=== PATIENT | male | born 1970 | race Caucasian/White ===

== ENCOUNTER 2016-12-04 21:34 | Observation (INO) ==
[2016-12-04] MEDS ORDERED: ASPIRIN 325 MG TABLET PO STA (22:02)
[2016-12-04] MEDS ORDERED: ASPIRIN 325 MG TABLET ONE (22:19)
[2016-12-04 22:34] LABS: Basophils # 0.1 10*3/uL (0.0-0.2); Eosinophils # 0.4 10*3/uL (0.0-0.87); Eosinophils % 3.3 % (0.00-10.9); Hematocrit 36.5 VOL% (42.0-52.0); Hemoglobin 12.3 GM/DL (14.0-18.0); Immature Granulocytes % 0.4 %; Immature Granulocytes Absolute 0.04 #; Lymphocytes # 2.2 10*3/uL (1.4-4.0); Lymphocytes % 19.8 % (21.2-54.2); Mean Corpuscular HGB Conc 33.7 GM/DL (32-36); Mean Corpuscular Hemoglobin 30 PG (27-34); Mean Corpuscular Volume 89.7 FL (87-102); Mean Platelet Volume 10.4 FL (9.6-12.0); Monocytes # 0.9 10*3/uL (0.11-0.8); Monocytes % 8.5 % (1.7-12.7); Neutrophils # 7.4 10*3/uL (1.4-7.4); Platelet Count 254 T/CUMM (130-400); Red Blood Count 4.07 MC/CUMM (3.8-5.5); Red Cell Distribution Width 13.5 % (9.3-17.3); White Blood Count 11.1 T/CUMM (4-12)
[2016-12-04 23:10] LABS: Alanine Aminotransferase 39 U/L (16-61); Albumin 3.5 G/DL (3.4-5.0); Alkaline Phosphatase 88 U/L (45-117); Aspartate Amino Transferase 21 U/L (0-37); Bilirubin,Total < 0.39 MG/DL (0.2-1.0); Blood Urea Nitrogen 19 MG/DL (7-18); Calcium 8.2 MG/DL (8.5-10.1); Glucose 140 MG/DL (74-106); Magnesium 2.1 MG/DL (1.8-2.4); Osmolality,Calculated 280.5 MOS/KG (273-304); Potassium 4.3 MMOL/L (3.5-5.1); Sodium 139 MMOL/L (136-145); Total Protein 6.8 G/DL (6.4-8.3)
[2016-12-04] MEDS ORDERED: HYDROmorphone 2 MG/1 ML VIAL IV PRN (23:25)
[2016-12-04] MEDS ORDERED: ONDANSETRON 4 MG/2 ML VIAL IV PRN (23:25)
--- NOTE | 2016-12-04 23:32 | Emergency Department Note ---
Raudel Hagen Brooke, am scribing for, and in the presence of, Tyra Andrade MD 22: 11. Lupe Hagen Leanne, MD, personally performed the services described in this documentation, ascribed by Cheli Starks in my presence, and it is both accurate and complete 332 . Arrival - Arrival Chief Complaint: Abdominal / Flank Pain Stated Complaint: possible heart attack ED Nursing Triage Note: C/O Nausea/vomiting/abd pain. Onset approx one hour ago. Pt states that the last time he had a heart attack he had similar symptoms so he wanted to get it checked out. Denies chest pain/shortness of breath. Reports that his blood pressure is elevated because he ran out of his BP meds and forgot to pick them up. Mode of Arrival: Ambulatory Limitations: No Limitations Source: Patient, RN Notes Reviewed Time Seen by Provider: 12/04/16 21:55 - History of Present Illness HPI Narrative: Patient is a 46 year old male who presents to the ED with c/o nausea, diaphoresis, and abdominal pain that started around 2054. Patient says he started feeling nauseated and took Nitro and then started feeling worse. He says he broke out into a cold sweat and started having some epigastric abdominal pain. Patient denies having any chest pain. He says he stopped taking his blood thinners for about "four to five" days because he was supposed to have some dental work done. He also did not take his blood pressure medication, this morning, and states that he ran out of them. Patient also has PMHx of CAD, MS, and depression. He says with the MS's, he had similar symptoms as today. His MS's happened almost two years ago and he did have stents placed. Allergies/Adverse Reactions: Allergies Allergy/AdvReac Type Severity Reaction Status Date / Time lisinopril AdvReac Cough Verified 02/05/15 14:08 Home Medications: Home Medications Medication Instructions Recorded Confirmed Type Aspirin [Ecotrin] 81 mg PO DAILY 03/09/15 12/04/16 History Atorvastatin Calcium [Lipitor] 80 mg PO BEDTIME 03/09/15 12/04/16 History Sertraline [Zoloft] 100 mg PO DAILY 03/09/15 12/04/16 History Ticagrelor [Brilinta] 90 mg PO BID 03/09/15 12/04/16 History Nitroglycerin Sl Tab [Nitrostat] 0.4 mg SL Q5M PRN 12/04/16 12/04/16 History Valsartan 160 mg PO DAILY 12/04/16 12/04/16 History amLODIPine [Norvasc] 10 mg PO DAILY 12/04/16 12/04/16 History buPROPion [Wellbutrin] 100 mg PO BID 12/04/16 12/04/16 History Review of System - Review of System 12 point system: reviewed and no additional remarkable complaints except as stated - Review of System Constitutional: Present: diaphoresis (cold sweat). Absent: fever Respiratory: Absent: respiratory distress Cardiovascular: Absent: chest pain Gastrointestinal: Present: abdominal pain (epigastric), nausea Skin: Absent: rash Medical,Surgical,& Family Hx - Medical History Cardio: History of: CAD, Hypertension, Cardiovascular Problems (CADstatus post MS, status post stent) Psychological: History of: Depression Neurology: No history of: Seizures - Surgical History Cardiac Surgeries: Sugical HX of: Cardiac Catheterization (today) Thoracic Surgeries: Surgical HX of;: Organ Transplant (tonsilectomy, knee scope) - Family History Family History: Reports;: Family Heart Disease (DAD AT 34 YEARS OF AGE FROM MS), Family Hypertension, Family Psychiatric Problems (mother suicide) - Social History Smoking Status: Former smoker Frequency of Alcohol Use: None Type of Drug Use: None Exam Vital Signs: Vital Signs Temperature 98.5 F 12/04/16 21:37 Pulse Rate 82 12/04/16 21:37 Respiratory Rate 18 12/04/16 21:37 Blood Pressure 168/104 12/04/16 21:37 O2 Sat by Pulse Oximetry 100 12/04/16 21:37 - General General appearance: alert, in no apparent distress - Head Head exam: Present: atraumatic, normocephalic - Eye Eye exam: Present: normal appearance, PERRL, EOMI - ENT ENT exam: Present: normal exam - Neck Neck exam: Present: normal inspection - Chest Chest inspection: Present: normal inspection, symmetric chest wall rise - Respiratory Respiratory exam: Present: normal lung sounds bilaterally - Cardiovascular Cardiovascular exam: Present: regular rate, normal rhythm, normal heart sounds - Abdominal Exam Abdominal exam: Present: soft, normal bowel sounds. Absent: distention, tenderness - Extremities Exam Extremities exam: Present: normal inspection - Back Exam Back exam: Present: normal inspection - Neurological Exam Neurological exam: Present: alert, oriented X3 - Psychiatric Psychiatric exam: Present: normal affect, normal mood - Skin Skin exam: Present: warm, dry, intact, normal color Course Course Narrative: pt reports hx of stents and had similar symptoms then. pt reports onset of nausea and then diaphoresis. felt worse after nitro. EKG unremarkable, first set of labs neg. will obs overnight for rule out. spoke with dr darby who said consult cardiology. Results - Labs CBC & BMP: 12/04/16 22:21 12/04/16 22:21 Lab Results: I have reviewed the patients labs Labs: Laboratory Tests 12/04/16 22:21 WBC 11.1 RBC 4.07 Hgb 12.3 L Hct 36.5 L MCV 89.7 MCH 30 MCHC 33.7 RDW 13.5 Plt Count 254 MPV 10.4 Neut % (Auto) 67.0 Lymph % (Auto) 19.8 L Amador % (Auto) 8.5 Eos % (Auto) 3.3 Neut # (Auto) 7.4 Lymph # (Auto) 2.2 Amador # (Auto) 0.9 H Eos # (Auto) 0.4 Baso # (Auto) 0.1 Immature Gran % 0.4 Nucleated RBC % 0.0 Immature Gran # 0.04 Nucleated RBCs # 0.00 Immature Plt Fraction 0.0 - EKG EKG results: interpreted by JOSELYN WNL, sinus rhythm, normal axis, normal QRS, normal ST/T Disposition Clinical Impression: Abdominal pain, Diaphoresis Case discussed with: patient Additional Instructions: admit to dr darby
--- NOTE | 2016-12-05 08:40 | XRay Report ---
Portable chest December 04, 2016 at 2205 hours Indication: Shortness of breath Comparison: Not available Findings: Cardiomediastinal contours are normal. Lungs are clear bilaterally. No acute osseous abnormalities. Visualized upper abdomen demonstrates no acute pathology. Impression: No acute cardiopulmonary findings PROCEDURE INTERPRETED AT [facility] DEPARTMENT OF RADIOLOGY Final Report Signed by: Nikolas Nesbitt
[2016-12-05] MEDS ORDERED: PANTOPRAZOLE 40 MG TABLET PO SCH (09:00)
[2016-12-05] MEDS ORDERED: ACETAMINOPHEN 325 MG TABLET PO PRN (09:46)
--- NOTE | 2016-12-05 09:50 | EKG Report ---
Stationary ECG Study [facility] ER Test Date: 12/04/2016 10:22:26 PM Pat Name: HEATHER TILLMAN Department: Room: 265 Gender: M [employer]visor [employer]: : 1970 Requested by: Tyra Andrade Order Number: [id number] Reading MD: MATEO FAITH Intervals [place] Rate: 81 P: 43 CA: 150 QRS: 83 QRSD: 106 T: 70 QT: 402 QTc: 439 Interpretive Statements SINUS RHYTHM POOR R-WAVE PROGRESSION Electronically Signed On 12-05-16 16:12:43 CDT by MATEO FAITH [email or web address]
[2016-12-05] MEDS ORDERED: NITROGLYCERIN SL 0.4 MG TABLET SL PRN (09:51)
--- NOTE | 2016-12-05 09:59 | Family Practice History&Phys ---
Assessment and Plan (1) Chest pain Status: Acute Assessment and plan: Patient experienced nausea diaphoresis and substernal chest pain laying in bed at home. Pain was relieved with one nitroglycerin. Pain is similar to pain he has had in the past with coronary artery disease. Will consult cardiology for evaluation Current Visit: No (2) ST elevation myocardial infarction (STEMI) Status: Chronic Assessment and plan: Previous myocardial infarction in 2012. Found to have coronary artery disease and stent placement Current Visit: No (3) Status post insertion of drug-eluting stent into left anterior descending ( LAD) artery Status: Chronic Assessment and plan: Patient had stent placement following evaluation for coronary artery disease. He had a myocardial infarction during that admission. Current Visit: No (4) Hypertension Status: Chronic Assessment and plan: Stable at present. Patient apparently has not been compliant with medications Current Visit: No (5) Tobacco abuse Status: Chronic Assessment and plan: Patient states she stopped smoking after his myocardial infarction but restarted 2 months ago. Now states that he stopped 2 weeks ago. Current Visit: No (6) Depression Status: Chronic Assessment and plan: Stable on present medication Current Visit: No History of Present Illness Chief complaint: Chest pain and weakness History of present illness: Mr. Reddy is a 46 year old male 46-year-old male admitted with onset of nausea and diaphoresis while laying in bed. Subsequently developed some dull type chest pain. Symptoms were relieved with nitroglycerin. Patient states the symptoms are similar to symptoms he has had the past with a myocardial infarction. Patient had a myocardial infarction in 2014. He subsequently had cardiac catheterization with stent placement. He is followed by Dr. Somers. Patient states that he has been off of his Brilinta for several days prior to a dental appointment. He apparently canceled a dental appointment and restarted his Brilinta 2 days prior to this admission. Also admits that he has not been taking blood pressure medications as prescribed. Further relates that he quit smoking after his original myocardial infarction but restarted smoking 2 months ago. Now states that he quit 2 weeks ago. Patient has not been a compliant patient. His enzymes and EKGs in the emergency room were unremarkable but in view of history we will admit further evaluation therapy. Will consult cardiology. Home Medications Medication Instructions Recorded Confirmed Type Aspirin [Ecotrin] 81 mg PO DAILY 03/09/15 12/05/16 History Atorvastatin Calcium [Lipitor] 80 mg PO BEDTIME 03/09/15 12/05/16 History Sertraline [Zoloft] 100 mg PO DAILY 03/09/15 12/05/16 History Ticagrelor [Brilinta] 90 mg PO BID 03/09/15 12/05/16 History Nitroglycerin Sl Tab [Nitrostat] 0.4 mg SL Q5M PRN 12/04/16 12/05/16 History Valsartan 160 mg PO DAILY 12/04/16 12/05/16 History amLODIPine [Norvasc] 10 mg PO DAILY 12/04/16 12/05/16 History buPROPion [Wellbutrin] 100 mg PO BID 12/04/16 12/05/16 History Allergies Allergy/AdvReac Type Severity Reaction Status Date / Time lisinopril AdvReac Cough Verified 02/05/15 14:08 Medical,Surgical,& Family Hx - Medical History Cardio: History of: CAD, Hypertension, VA, Cardiovascular Problems (CADstatus post VA, status post stent) Psychological: History of: Anxiety Disorders, Depression Neurology: No history of: Seizures Endocrine: History of: Dyslipidemia - Surgical History Cardiac Surgeries: Sugical HX of: Cardiac Catheterization (today) Thoracic Surgeries: Comment Only: Organ Transplant (tonsilectomy, knee scope) - Family History Family History: Reports;: Family Heart Disease (DAD AT 34 YEARS OF AGE FROM VA), Family Hypertension, Family Psychiatric Problems (mother suicide) - Social History Smoking Status: Former smoker Have you smoked in the last 12 months: Yes Time spent discussing smoking cessation with patient: 3 to 10 minutes Frequency of Alcohol Use: Frequently (Drinks 2-3 beers daily) Type of Drug Use: None Marital Status: Lives With:: Spouse Functional capacity: independent ambulation Exam - Constitutional Vitals: Period Temp Pulse Resp BP Sys/Ni Pulse Ox Last 24 Hr 97.6 F-98.5 F 69-92 16-18 125-168/72-104 96-100 General appearance: no acute distress - Head Head exam: Present: normal inspection - Eye Pupils: Present: JACK - ENT ENT exam: Present: normal exam - Neck Neck exam: Present: normal inspection - Respiratory Respiratory exam: Present: clear to auscultation bilaterally - Cardiovascular Cardiovascular exam: Present: regular rate and rhythm - GI/Abdominal GI/Abdominal exam: Present: normal bowel sounds, soft - Extremities Exam Extremities exam: Present: normal inspection - Back Exam Back exam: Present: normal inspection - Neurological Exam Neurological exam: Present: alert, oriented X3 - Psychiatric Psychiatric exam: Present: normal affect - Skin Skin exam: Present: normal color Results - Labs CBC & BMP: 12/04/16 22:21 12/04/16 22:21
[2016-12-05] MEDS ORDERED: VALSARTAN 160 MG TABLET PO SCH (10:00)
[2016-12-05] MEDS ORDERED: SERTRALINE 100 MG TABLET PO SCH (10:00)
[2016-12-05] MEDS ORDERED: buPROPion 100 MG TABLET PO SCH (10:00)
[2016-12-05] MEDS ORDERED: amLODIPine 10 MG TABLET PO SCH (10:00)
[2016-12-05] MEDS ORDERED: ASPIRIN EC 81 MG TABLET PO SCH (10:00)
[2016-12-05] MEDS ORDERED: SODIUM CHLORIDE 0.45% 1,000 ML IV SCH (10:00)
[2016-12-05] MEDS ORDERED: TICAGRELOR 90 MG TABLET PO SCH (10:00)
[2016-12-05] MEDS ORDERED: ENOXAPARIN 40 MG/0.4 ML SYRINGE SUBCUT SCH (10:00)
[2016-12-05 10:33] LABS: Basophils # 0.1 10*3/uL (0.0-0.2); Basophils % 1.2 % (0.0-0.8); Eosinophils # 0.3 10*3/uL (0.0-0.87); Eosinophils % 3.7 % (0.00-10.9); Hematocrit 36.5 VOL% (42.0-52.0); Hemoglobin 12.4 GM/DL (14.0-18.0); Immature Granulocytes % 0.5 %; Immature Granulocytes Absolute 0.04 #; Lymphocytes # 2.2 10*3/uL (1.4-4.0); Lymphocytes % 26.9 % (21.2-54.2); Mean Corpuscular Hemoglobin 30 PG (27-34); Mean Platelet Volume 10.2 FL (9.6-12.0); Monocytes # 0.7 10*3/uL (0.11-0.8); Monocytes % 9.1 % (1.7-12.7); Neutrophils # 4.8 10*3/uL (1.4-7.4); Neutrophils % 58.6 % (38.7-73.9); Platelet Count 254 T/CUMM (130-400); Red Cell Distribution Width 13.6 % (9.3-17.3); White Blood Count 8.2 T/CUMM (4-12)
[2016-12-05 10:39] LABS: Apearance,Urine CLEAR (Clear); Bilirubin,Urine Negative (Negative); Blood, Urine Negative (Negative); Glucose,Urine (UA) Negative (Negative); Ketones,Urine Negative (Negative); Nitrite,Urine Negative (Negative); Protein,Urine Negative; RBC,Urine <1 /HPF (0-4); Squamous Epithelial Cell,Urine Occasional /HPF (0-10); Urine Color Straw (Yellow); Urine Specific Gravity 1.008 (1.001-1.035); Urine Urobilinogen < 2.0 EU/DL (0.2-1.0); WBC,Urine 1 /HPF (0-6)
[2016-12-05 11:03] LABS: Alanine Aminotransferase 33 U/L (16-61); Albumin 3.4 G/DL (3.4-5.0); Alkaline Phosphatase 79 U/L (45-117); Aspartate Amino Transferase 12 U/L (0-37); Bilirubin,Total < 0.39 MG/DL (0.2-1.0); Blood Urea Nitrogen 14 MG/DL (7-18); Calcium 8.3 MG/DL (8.5-10.1); Glucose 112 MG/DL (74-106); Osmolality,Calculated 282.3 MOS/KG (273-304); Potassium 4.3 MMOL/L (3.5-5.1); Sodium 141 MMOL/L (136-145); Total Protein 6.9 G/DL (6.4-8.3)
[2016-12-05 12:45] VITALS: BP 139/86
--- NOTE | 2016-12-05 13:03 | Discharge Summary ---
Hospital Course - Hospital Course Hospital Course: Mr. Reddy is a 46 year old male 46-year-old male admitted with onset of nausea and diaphoresis while laying in bed. Subsequently developed some dull type chest pain. Symptoms were relieved with nitroglycerin. Patient states the symptoms are similar to symptoms he has had the past with a myocardial infarction. Patient had a myocardial infarction in 2014. He subsequently had cardiac catheterization with stent placement. He is followed by Dr. Somers. Patient states that he has been off of his Brilinta for several days prior to a dental appointment. He apparently canceled a dental appointment and restarted his Brilinta 2 days prior to this admission. Also admits that he has not been taking blood pressure medications as prescribed. Further relates that he quit smoking after his original myocardial infarction but restarted smoking 2 months ago. Now states that he quit 2 weeks ago. Patient has not been a compliant patient. His enzymes and EKGs in the emergency room were unremarkable but in view of history patient was admitted HOSPITAL COURSE -patient was admitted hospital lab and x-ray studies obtained. He has had no further chest pain and cardiac isoenzymes and EKGs have remained stable. He was seen in consultation by Dr. Mcgee a local marketing coordinator. Dr. Mcgee feels that patient is stable and would recommend discharge and arrange outpatient nuclear stress test with Dr. Lopez this week. His staff has placed orders in the clinic computer that patient be scheduled for stress test and they will contact the patient. Advised patient that he must take medications as prescribed. Also advised that he needs to start diet and exercise program. Needs to continue with nicotine cessation program. Patient states he will comply. Advised patient that if he has any further dyspnea or chest pain he is to return to emergency room immediately. Patient states she understands will comply. I will have him keep his scheduled follow-up appointment in my clinic but again stressed the necessity that he contact Dr. Lopez for follow-up. Patient and understand and will comply Diagnosis - Discharge Diagnosis (1) Chest pain noncardiac in etiology Status: Acute (2) ST elevation myocardial infarction (STEMI) Status: Chronic (3) Status post insertion of drug-eluting stent into left anterior descending ( LAD) artery Status: Chronic (4) Hypertension Status: Chronic (5) Tobacco abuse Status: Chronic (6) Depression Status: Chronic Discharge Plan - Discharge Data Disposition: Disch To Home/Self Care Condition at Discharge: Stable Discharge Diet: advance to your usual diet Activity: resume usual activities as tolerated Hygiene: no restrictions Weight Bearing at Discharge: full weight bearing Driving: no restrictions Contact your physician if you experience:: Nausea/Vomiting, Shortness of breath - Discharge Medications Continue Ticagrelor [Brilinta] 90 mg PO BID Sertraline [Zoloft] 100 mg PO DAILY Atorvastatin Calcium [Lipitor] 80 mg PO BEDTIME Aspirin [Ecotrin] 81 mg PO DAILY amLODIPine [Norvasc] 10 mg PO DAILY buPROPion [Wellbutrin] 100 mg PO BID Valsartan 160 mg PO DAILY Nitroglycerin Sl Tab [Nitrostat] 0.4 mg SL Q5M PRN PRN Reason: Chest Pain - Follow Up or Referral Follow Up: Shivam Somers MD [Physician] - (Patient is to call Dr. Robert office in a.m. arrange outpatient nuclear stress test) Kaveh Alba DO [Physician] - (Patient is to keep his routine schedule appointment in my office. He is to call if further problems develop) - Forms/Instructions Exam - Constitutional Vitals: Period Temp Pulse Resp BP Sys/Ni Pulse Ox Last 24 Hr 97.6 F-98.5 F 69-92 16-20 125-168/72-107 96-100 General appearance: no acute distress - Head Head exam: Present: normal inspection - Eye Pupils: Present: JACK - ENT ENT exam: Present: normal exam - Neck Neck exam: Present: normal inspection - Respiratory Respiratory exam: Present: clear to auscultation bilaterally - Cardiovascular Cardiovascular exam: Present: regular rate and rhythm - GI/Abdominal GI/Abdominal exam: Present: normal bowel sounds, soft - Extremities Exam Extremities exam: Present: normal inspection - Back Exam Back exam: Present: normal inspection - Neurological Exam Neurological exam: Present: alert, oriented X3 - Psychiatric Psychiatric exam: Present: normal affect, normal mood - Skin Skin exam: Present: normal color Discharge Results Procedures and tests throughout hospitalization: Pending Orders 12/06/16 04:00 Basic Metabolic Panel IN AM Comp Blood Count Auto Diff IN AM Lipid Panel IN AM Magnesium IN AM Labs on day of discharge: Labs from last 24 hours 12/05/16 12/05/16 12/05/16 10:28 10:16 10:16 WBC 8.2 RBC 4.10 Hgb 12.4 L Hct 36.5 L MCV 89.0 MCH 30 MCHC 34.0 RDW 13.6 Plt Count 254 MPV 10.2 Neut % (Auto) 58.6 Lymph % (Auto) 26.9 Banner % (Auto) 9.1 Eos % (Auto) 3.7 Baso % (Auto) 1.2 H Neut # (Auto) 4.8 Lymph # (Auto) 2.2 Banner # (Auto) 0.7 Eos # (Auto) 0.3 Baso # (Auto) 0.1 Immature Gran % 0.5 Nucleated RBC % 0.0 Immature Gran # 0.04 Nucleated RBCs # 0.00 Immature Plt Fraction 0.0 Sodium 141 Potassium 4.3 Chloride 108 H Carbon Dioxide 31 Anion Gap 6.3 BUN 14 Creatinine 1.20 GFR Calculation 94 BUN/Creatinine Ratio 11.00 Glucose 112 H Calculated Osmolality 282.3 Calcium 8.3 L Magnesium Total Bilirubin < 0.39 AST 12 ALT 33 Alkaline Phosphatase 79 Troponin I Total Protein 6.9 Albumin 3.4 Globulin 3.5 Albumin/Globulin Ratio 0.9 L Lipase Urine Color Straw Urine Appearance Clear Urine pH 7.0 Ur Specific Higbee 1.008 Urine Protein Negative Urine Glucose (UA) Negative Urine Ketones Negative Urine Blood Negative Urine Nitrate Negative Urine Bilirubin Negative Urine Urobilinogen < 2.0 H Urine Leukocytes Negative Urine RBC <1 Urine WBC 1 Ur Squamous Epith Cells Occasional Ur Culture Indicated? Not indicated 12/05/16 12/04/16 12/04/16 04:27 22:21 22:21 WBC 11.1 RBC 4.07 Hgb 12.3 L Hct 36.5 L MCV 89.7 MCH 30 MCHC 33.7 RDW 13.5 Plt Count 254 MPV 10.4 Neut % (Auto) 67.0 Lymph % (Auto) 19.8 L Banner % (Auto) 8.5 Eos % (Auto) 3.3 Baso % (Auto) 1.0 H Neut # (Auto) 7.4 Lymph # (Auto) 2.2 Banner # (Auto) 0.9 H Eos # (Auto) 0.4 Baso # (Auto) 0.1 Immature Gran % 0.4 Nucleated RBC % 0.0 Immature Gran # 0.04 Nucleated RBCs # 0.00 Immature Plt Fraction 0.0 Sodium Potassium Chloride Carbon Dioxide Anion Gap BUN Creatinine GFR Calculation BUN/Creatinine Ratio Glucose Calculated Osmolality Calcium Magnesium Total Bilirubin AST ALT Alkaline Phosphatase Troponin I < 0.015 < 0.015 Total Protein Albumin Globulin Albumin/Globulin Ratio Lipase Urine Color Urine Appearance Urine pH Ur Specific Higbee Urine Protein Urine Glucose (UA) Urine Ketones Urine Blood Urine Nitrate Urine Bilirubin Urine Urobilinogen Urine Leukocytes Urine RBC Urine WBC Ur Squamous Epith Cells Ur Culture Indicated? 12/04/16 22:21 WBC RBC Hgb Hct MCV MCH MCHC RDW Plt Count MPV Neut % (Auto) Lymph % (Auto) Banner % (Auto) Eos % (Auto) Baso % (Auto) Neut # (Auto) Lymph # (Auto) Banner # (Auto) Eos # (Auto) Baso # (Auto) Immature Gran % Nucleated RBC % Immature Gran # Nucleated RBCs # Immature Plt Fraction Sodium 139 Potassium 4.3 Chloride 105 Carbon Dioxide 27 Anion Gap 11.3 BUN 19 H Creatinine 1.20 GFR Calculation 83 BUN/Creatinine Ratio 15.00 Glucose 140 H Calculated Osmolality 280.5 Calcium 8.2 L Magnesium 2.1 Total Bilirubin < 0.39 AST 21 ALT 39 Alkaline Phosphatase 88 Troponin I Total Protein 6.8 Albumin 3.5 Globulin 3.3 Albumin/Globulin Ratio 1.0 L Lipase 101.0 Urine Color Urine Appearance Urine pH Ur Specific Higbee Urine Protein Urine Glucose (UA) Urine Ketones Urine Blood Urine Nitrate Urine Bilirubin Urine Urobilinogen Urine Leukocytes Urine RBC Urine WBC Ur Squamous Epith Cells Ur Culture Indicated? DS: Provider Date of admission: 12/04/16 23:25 Primary care physician: Nonstaff Physician Attending physician on admission: Kaveh Alba DO Consults: 12/04/16 23:27 Consult to Physician [CONS] Routine Comment: chest pain Consulting Provider: Trevor Mcgee Discharging clinician: Kaveh Alba DO
--- NOTE | 2016-12-05 15:01 | Cardiology History & Physical ---
I, Lissette Cordero NP, am scribing for, and in the presence of, Trevor Mcgee MD 14:59. Assessment and Plan - Time spent with patient Time spent with patient: Greater than 30 minutes (Record review, assessment, documentation) (1) Nausea Status: Acute Assessment and plan: He actually presented primarily for the nausea. He had some nausea with his previous myocardial infarction but has not had any symptoms this time similar to his previous angina. His EKG and cardiac enzymes are benign. His symptoms have completely resolved. His exam is also benign. I think the patient is stable for discharge home. Given his history of cardiac disease I would get a routine outpatient cardiac screening with his primary cash applications specialist, Dr. Somers. Current Visit: Yes (2) CAD (coronary artery disease) Status: Chronic Assessment and plan: As noted above, the patient's symptoms are different from his previous angina and his inpatient evaluation and exam have been benign. As noted above I think we can discharge him home for an outpatient follow-up/workup with his primary cash applications specialist. Current Visit: Yes (3) Hypertension Status: Chronic Current Visit: No (4) Obesity Status: Chronic Current Visit: No (5) Tobacco abuse Status: Chronic Current Visit: No (6) Diaphoresis Status: Resolved Current Visit: Yes History of Present Illness History of present illness: URGENT CARE PHYSICIAN ASSISTANT: Dr. Somers Mr. Reddy is a 46 year old male, who is known to Dr. Somers. He has a history of coronary artery disease, and reports that he had an HI in 2014. At that time he received a stent to the proximal LAD and and 03/17 he received a stent to the RCA. Cardiac risk factors include obesity, smoking (quit 2 weeks ago), CAD, hypertension, family history of early CAD (father at 33 of HI). The patient reports he has been off of Brilinta for several days for dental appointment, but he had to cancel the appointment and did take his Brilinta for a couple of days previous to the hospital admission. He states he forgot to take his blood pressure medicine yesterday, and has been out of another medication for his blood pressure. He denies past surgical history other than cardiac stenting 2. Past medical history is positive for hypertension and HI. He reports he stopped smoking for about 2 months after his HI, but restarted and now has quit 2 weeks ago. He admits drinking 2-3 beers daily. He denies illicit drug use. The patient reports that he was lying in bed and awakened with a feeling of nausea. He did not experience chest pain, or symptoms similar to his previous angina/HI. He denies vomiting, chest pain, shortness of breath, abdominal or epigastric pain, or heart palpitations. With his previous HI he had pain radiating into his chest and jaw. He also has some mild symptoms going to his arm. He was profoundly diaphoretic during his previous angina/HI. Ultimately, he decided it would be best to come in and get evaluated after having this transient nausea. He did have "a few seconds of sweating" associated with the nausea. Since admission he has felt completely back to normal. He is seen today lying in bed in no apparent distress. He denies chest pain, further nausea, or diaphoresis. His blood pressure has been slightly elevated on this admission, 150s-160s systolically however the patient did not take his blood pressure medication yesterday. This morning it is 125/72. His EKG shows normal sinus rhythm, with a rate in the 80s. Labs reviewed today reveal hemoglobin 12.3, hematocrit 36.5, potassium 4.3, creatinine 1.2, BUN 19, glucose 140, troponin less than 0.015 (2). The patient has been housed on telemetry overnight and cardiac strips reveal sinus rhythm. The patient reports that he is able to exert himself heavily at his job and has not had any sort of exertional anginal symptoms. He has not had any palpitations or syncope. He has not had any dyspnea. Home Medications Medication Instructions Recorded Confirmed Type Aspirin [Ecotrin] 81 mg PO DAILY 03/09/15 12/05/16 History Atorvastatin Calcium [Lipitor] 80 mg PO BEDTIME 03/09/15 12/05/16 History Sertraline [Zoloft] 100 mg PO DAILY 03/09/15 12/05/16 History Ticagrelor [Brilinta] 90 mg PO BID 03/09/15 12/05/16 History Nitroglycerin Sl Tab [Nitrostat] 0.4 mg SL Q5M PRN 12/04/16 12/05/16 History Valsartan 160 mg PO DAILY 12/04/16 12/05/16 History amLODIPine [Norvasc] 10 mg PO DAILY 12/04/16 12/05/16 History buPROPion [Wellbutrin] 100 mg PO BID 12/04/16 12/05/16 History Home Medications Medication Instructions Recorded Confirmed Type Aspirin [Ecotrin] 81 mg PO DAILY 03/09/15 12/05/16 History Atorvastatin Calcium [Lipitor] 80 mg PO BEDTIME 03/09/15 12/05/16 History Sertraline [Zoloft] 100 mg PO DAILY 03/09/15 12/05/16 History Ticagrelor [Brilinta] 90 mg PO BID 03/09/15 12/05/16 History Nitroglycerin Sl Tab [Nitrostat] 0.4 mg SL Q5M PRN 12/04/16 12/05/16 History Valsartan 160 mg PO DAILY 12/04/16 12/05/16 History amLODIPine [Norvasc] 10 mg PO DAILY 12/04/16 12/05/16 History buPROPion [Wellbutrin] 100 mg PO BID 12/04/16 12/05/16 History Allergies Allergy/AdvReac Type Severity Reaction Status Date / Time lisinopril AdvReac Cough Verified 02/05/15 14:08 - Constitutional Constitutional: Absent: anorexia, chills, daytime sleepiness, fatigue, lethargy , malaise - EENT Eyes: Absent: blurry vision Nose, mouth and throat: Absent: dysphagia, epistaxis, headache(s) - Cardiovascular Cardiovascular: Present: diaphoresis. Absent: chest pain at rest, chest pain with activity, dyspnea, dyspnea on exertion, edema, radiating jaw, neck or arm pain, lightheadedness, orthopnea, palpitations - Respiratory Respiratory: Absent: cough, dyspnea, hemoptysis, dyspnea on exertion, wheezing - Gastrointestinal Gastrointestinal: Present: nausea. Absent: abdominal pain, change in bowel habits, coffee ground emesis, constipation, heartburn, hematemesis, hematochezia , melena, vomiting - Genitourinary Genitourinary: Absent: difficulty urinating, dysuria, hematuria - Neurological Neurological: Absent: abnormal gait, abnormal speech, behavioral changes - Endocrine Endocrine: Absent: cold intolerance, fatigue Medical,Surgical,& Family Hx - Medical History Cardio: History of: CAD, Hypertension, HI, Cardiovascular Problems (CADstatus post HI, status post stent) Psychological: History of: Depression Neurology: No history of: Cerebrovascular Accident, Seizures Endocrine: No history of: Diabetes Mellitus (IDDM), Diabetes Mellitus (NIDDM) - Surgical History Cardiac Surgeries: Sugical HX of: Cardiac Catheterization (today) Thoracic Surgeries: Comment Only: Organ Transplant (tonsilectomy, knee scope) - Family History Family History: Reports;: Family Heart Disease (DAD AT 34 YEARS OF AGE FROM HI), Family Hypertension, Family Psychiatric Problems (mother suicide) - Social History Smoking Status: Former smoker Have you smoked in the last 12 months: Yes Time spent discussing smoking cessation with patient: 3 to 10 minutes Frequency of Alcohol Use: Frequently Type of Drug Use: None Marital Status: Lives With:: Spouse Functional capacity: independent ambulation Cardiology Physical Exam - Constitutional Vitals: Vital Signs Temp Pulse Resp BP Pulse Ox 97.6 F 69 18 125/72 98 12/05/16 08:00 12/05/16 08:00 12/05/16 08:00 12/05/16 08:00 12/05/16 08:00 Intake and Output 12/04/16 12/05/16 12/05/16 23:59 07:59 15:59 Output Total 700 / 700 Balance -700 / -700 Output: Urine 700 / 700 Other: Voiding Method Urinal # Bowel Movements 0 Weight 240 lb 234 lb Patient Weight 12/05/16 23:59 Weight 234 lb Exam: General: Appears well with no apparent distress, obese. Pleasant and cooperative. Appears comfortable. HEENT: PERRL, normocephalic, atraumatic. Mucous membranes moist. No jaundice noted. Conjunctiva moist and clear, sclerae anicteric. Neck: No JVD/HJR, no thyromegaly or lymphadenopathy noted. No carotid bruit appreciated. Cardiac: Regular rate and rhythm. No murmur rub or gallop. PMI is nondisplaced. Lungs: Clear to auscultation without accessory muscle use to assist the respiratory pattern. No oxygen required. Abdomen: Soft, bowel sounds normoactive. Nontender and nondistended. No abdominal bruit or thrill noted. No masses noted. Musculoskeletal: No fluid collection. Full range of motion is noted. Extremities: No clubbing, cyanosis noted. No edema noted. Upper extremity pulses 2+. Lower extremity pulses 2+. Capillary refill less than 3 seconds. Skin: No unusual lesions or rashes. No skin breakdown appreciated. Neuro: Awake, alert and oriented 3. Moves all extremities well without hemiparesis or paralysis. No essential tremor is appreciated. Result/EKG - Labs CBC & BMP: 12/05/16 10:16 12/05/16 10:16 Lab Results: I have reviewed the past 24 hour labs Labs: Laboratory Results - last 24 hr 12/04/16 12/04/16 12/04/16 22:21 22:21 22:21 WBC 11.1 RBC 4.07 Hgb 12.3 L Hct 36.5 L MCV 89.7 MCH 30 MCHC 33.7 RDW 13.5 Plt Count 254 MPV 10.4 Neut % (Auto) 67.0 Lymph % (Auto) 19.8 L [place] % (Auto) 8.5 Eos % (Auto) 3.3 Baso % (Auto) 1.0 H Neut # (Auto) 7.4 Lymph # (Auto) 2.2 [place] # (Auto) 0.9 H Eos # (Auto) 0.4 Baso # (Auto) 0.1 Immature Gran % 0.4 Nucleated RBC % 0.0 Immature Gran # 0.04 Nucleated RBCs # 0.00 Immature Plt Fraction 0.0 Sodium 139 Potassium 4.3 Chloride 105 Carbon Dioxide 27 Anion Gap 11.3 BUN 19 H Creatinine 1.20 GFR Calculation 83 BUN/Creatinine Ratio 15.00 Glucose 140 H Calculated Osmolality 280.5 Calcium 8.2 L Magnesium 2.1 Total Bilirubin < 0.39 AST 21 ALT 39 Alkaline Phosphatase 88 Troponin I < 0.015 Total Protein 6.8 Albumin 3.5 Globulin 3.3 Albumin/Globulin Ratio 1.0 L Lipase 101.0 12/05/16 04:27 WBC RBC Hgb Hct MCV MCH MCHC RDW Plt Count MPV Neut % (Auto) Lymph % (Auto) [place] % (Auto) Eos % (Auto) Baso % (Auto) Neut # (Auto) Lymph # (Auto) [place] # (Auto) Eos # (Auto) Baso # (Auto) Immature Gran % Nucleated RBC % Immature Gran # Nucleated RBCs # Immature Plt Fraction Sodium Potassium Chloride Carbon Dioxide Anion Gap BUN Creatinine GFR Calculation BUN/Creatinine Ratio Glucose Calculated Osmolality Calcium Magnesium Total Bilirubin AST ALT Alkaline Phosphatase Troponin I < 0.015 Total Protein Albumin Globulin Albumin/Globulin Ratio Lipase - Diagnostic Findings Procedure: Chest x-ray: pending, image reviewed by me - EKG EKG results: interpreted by me, sinus rhythm I, Trevor Mcgee MD, personally performed the services described in this documentation, ascribed by Lissette Cordero NP in my presence, and it is both accurate and complete 501 .
[2016-12-05] MEDS ORDERED: ATORVASTATIN 80 MG TABLET PO SCH (21:00)
[2016-12-05] MEDS ORDERED: DOCUSATE SODIUM 100 MG CAPSULE PO SCH (21:00)
== END 2016-12-05 14:57 | disposition home or self-care (01) ==
LOC: N.EDINP 21:34 → N.ED 21:34 → INTOOBSV 23:25 → OBSVTOIN 23:25 → N.TELES 12-05 00:20
PROVIDERS: ADMIT Family Medicine; ATTEND Family Medicine